=== PATIENT | female | born 1950 | race Caucasian/White ===

== ENCOUNTER → 2024-12-25 08:09 | Outpatient (REF) | payer MEDICARE, OTHER, SELFPAY ==
[2024-12-25 10:02] LABS: Blood Urea Nitrogen 22 mg/dl (7-17); Calcium 9.7 mg/dl (8.4-10.2); Carbon Dioxide 31 mmol/L (22-30); Chloride 100 mmol/L (98-107); Glucose 104 mg/dl (70-99); Potassium 3.9 mmol/L (3.5-5.1); Sodium 138 mmol/L (135-145); eGFR > 60.00
[2024-12-25 10:18] LABS: Hematocrit 41.3 % (37.0-47.0); Hemoglobin 14.1 g/dL (12.0-16.0); Mean Corp Hgb Conc. 34.1 g/dL (33.0-37.0); Mean Corpuscular Hgb 31.9 pg (27.0-31.0); Mean Corpuscular Volume 93.4 fL (81.0-99.0); Mean Platelet Volume 11.2 fL (7.4-10.4); Platelet Count 160 10^3/uL (130-400); Red Blood Cell Count 4.42 10^6/uL (4.20-5.40); Red Cell Dist. Width 12.7 % (11.5-14.5); White Blood Cell Count 4.9 10^3/uL (4.8-10.8)
== END ==
LOC: SDSPAT 08:09
PROVIDERS: ATTENDING PHYSICIAN Obstetrics & Gynecology; FAMILY PHYSICIAN Family Medicine
DX: Z01.818 Encounter for other preprocedural examination (principal)
CPT/HCPCS: 80048; 85027; 93005

== ENCOUNTER 2025-01-04 06:15 | Day surgery (SDC) | payer MEDICARE, OTHER, SELFPAY ==
[2024-12-25 11:45] VITALS: BMI 25.6
--- NOTE | 2024-12-25 14:30 | PTCARENOTE ---
Abnormal ECG 12/25/24, reviewed by Dr Nelson, no further interventions requested.
[2025-01-04] VITALS (18 sets, daily range): BP systolic 93–140; BP diastolic 47–85; BMI 25.6
[2025-01-04] MEDS: Pyridium 200 MG PO (08:56)
[2025-01-04] MEDS: NORMOSOL-R/PLASMALYTE-A 1000 IV (08:57)
--- NOTE | 2025-01-04 12:22 | PTCARENOTE ---
Patient tried to void and was unable. Patient bladder scanned for 143 ml of urine. Patient back in bed and is drinking fluids so she can void. Will monitor.
--- NOTE | 2025-01-04 13:05 | SUR.OPER ---
Patient voided pink/small amount of red blood into toilet. Patient states that she did void. Patient ready for discharge. Will monitor patient.
== END 2025-01-04 13:04 | disposition home or self-care (01) ==
LOC: SDS 06:15
PROVIDERS: ATTENDING PHYSICIAN Obstetrics & Gynecology; FAMILY PHYSICIAN Family Medicine
DX: N81.6 Rectocele (principal); N39.3 Stress incontinence (female) (male); N36.42 Intrinsic sphincter deficiency (ISD); N95.8 Other specified menopausal and perimenopausal disorders
CPT/HCPCS: 57250; 51715; C1713; L8606